=== PATIENT | male | born 1965 | race Caucasian/White ===

== ENCOUNTER → 2016-12-18 | Outpatient (CLI) | payer MEDICARE, OTHER ==
[~2016-12-18] MED LIST: GABA-531 PO; GLIP5 PO; METF500T4 PO; MULT-1192 PO; TRAM50TA4 PO
== END | disposition home or self-care (01) ==
LOC: RADPV 08:07
PROVIDERS: ATTEND Family Medicine
DX: K42.9 Umbilical hernia without obstruction or gangrene (principal)
CPT/HCPCS: 76700

== ENCOUNTER → 2017-03-18 | Outpatient (CLI) | payer MEDICARE, OTHER | END | disposition home or self-care (01) | LOC: RADMN 08:13 | PROVIDERS: ATTEND Family Medicine | DX: M75.101 Unspecified rotator cuff tear or rupture of right shoulder, not specified as traumatic (principal); M75.51 Bursitis of right shoulder; M19.011 Primary osteoarthritis, right shoulder; M75.21 Bicipital tendinitis, right shoulder | CPT/HCPCS: 73221 ==

== ENCOUNTER → 2018-07-18 | Outpatient (CLI) | payer MEDICARE, OTHER ==
[~2018-07-18] MED LIST changes: +METF-960 PO; -METF500T4 PO
== END | disposition home or self-care (01) ==
LOC: RADPV 12:01
PROVIDERS: ATTEND Family Medicine
DX: M17.0 Bilateral primary osteoarthritis of knee (principal); G89.29 Other chronic pain

== ENCOUNTER → 2018-10-05 | Outpatient (CLI) | payer MEDICARE, OTHER | END | disposition home or self-care (01) | LOC: RADPV 09:24 | PROVIDERS: ATTEND Family Medicine | DX: M17.12 Unilateral primary osteoarthritis, left knee (principal) ==

== ENCOUNTER 2021-08-19 10:33 | Emergency (ER) | payer MEDICARE, OTHER ==
[~2021-08-19] VITALS: Ht 172.7 cm; Wt 120.4 kg
[~2021-08-19 10:33] MED LIST changes: +GABA-1181 PO; -GABA-531 PO; +METF-1211 PO; -METF-960 PO
[2021-08-19 10:47] VITALS: BP 124/80
[2021-08-19] MEDS ORDERED: DOXYCYCLINE HYCLATE 100 MG TABLET PO ONE (11:00)
[2021-08-19] MEDS ORDERED: ACETAMINOPHEN 500 MG TABLET PO ONE (11:00)
[2021-08-19] MEDS ORDERED: BACITRACIN 0.9 GM PACKET OINTMENT TP ONE (11:00)
[2021-08-19 11:11] LABS: GLUCOSE,POINT OF CARE 112 MG/DL (70-110)
== END 2021-08-19 11:42 | disposition home or self-care (01) ==
LOC: EMS 11:34
DX: L03.116 Cellulitis of left lower limb (principal); L03.317 Cellulitis of buttock; E11.9 Type 2 diabetes mellitus without complications; F12.90 Cannabis use, unspecified, uncomplicated; F15.90 Other stimulant use, unspecified, uncomplicated; Z87.891 Personal history of nicotine dependence; Z79.84 Long term (current) use of oral hypoglycemic drugs; Z79.899 Other long term (current) drug therapy
CPT/HCPCS: 82962; 99284

== ENCOUNTER 2021-08-21 14:17 | Emergency (ER) | payer MEDICARE ==
[~2021-08-21] VITALS: Ht 177.8 cm; Wt 113.6 kg
[2021-08-21 14:22] VITALS: BP 116/64
== END 2021-08-21 15:24 | disposition home or self-care (01) ==
LOC: EMS 14:17
DX: L03.116 Cellulitis of left lower limb (principal); L03.317 Cellulitis of buttock; L02.31 Cutaneous abscess of buttock; E11.9 Type 2 diabetes mellitus without complications; F17.210 Nicotine dependence, cigarettes, uncomplicated; F12.90 Cannabis use, unspecified, uncomplicated; F19.90 Other psychoactive substance use, unspecified, uncomplicated; Z79.84 Long term (current) use of oral hypoglycemic drugs
CPT/HCPCS: 99283